=== PATIENT | male | born 1980 | race Two or more races ===

== ENCOUNTER 2025-03-23 23:40 | Emergency (ER) | payer MEDICAID, SELFPAY ==
[2025-03-23 23:46] VITALS: BP 137/80; PULSE 87; RESP 17; TEMP 36.6; O2SAT 96
[2025-03-23 23:48] VITALS: PULSE 100; O2SAT 99
--- NOTE | 2025-03-24 00:33 | XR_ITS ---
Examination: AP chest single view TECHNIQUE: AP portable upright chest single view Date and time: March 24, 2025 at 0057 hours Comparison June 01, 2024 INDICATIONS: Altered mental status shortness of breath today. FINDINGS: Mild opacity left base. Normal heart size Moderate osteopenia IMPRESSION: Mild opacity left base, consider early pneumonia
--- NOTE | 2025-03-24 00:33 | EKG_ITS ---
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
[2025-03-24 00:53] LABS: Lactate (Lactic Acid) 1.5 mMol/L (0.4-2.0)
[2025-03-24 00:56] LABS: Basophils # (Auto) 0.1 Thou/mm3 (0.0-0.2); Basophils % (Auto) 1 % (0-2.5); Eosinophils # (Auto) 0.3 Thou/mm3 (0.0-0.5); Eosinophils % (Auto) 3 % (0-10); Hematocrit 43.1 % (41.0-53.0); Hemoglobin 14.5 g/dL (13.5-16.0); Immature Granulocytes Auto 0.02 Thou/mm3 (0.00-0.00); Lymphocytes # (Auto) 3.0 Thou/mm3 (1.0-4.8); Lymphocytes % (Auto) 33 % (10-50); Mean Corpuscular HGB Conc 33.6 g/dl (31.0-37.0); Mean Corpuscular Hemoglobin 31.6 pg (25.0-35.0); Mean Corpuscular Volume 94 fL (80-100); Monocytes # (Auto) 1.1 Thou/mm3 (0.0-0.8); Monocytes % (Auto) 12 % (0-12); Neutrophils # (Auto) 4.7 Thou/mm3 (1.8-7.7); Neutrophils % (Auto) 51 % (37-80); Nucleated Red Blood Cell # 0.00 Thou/mm3 (0.00-0.00); Nucleated Red Blood Cell % 0 /100 WBC (0); Platelet Count 241 Thou/mm3 (140-440); RDW Standard Deviation 43.8 fL (35.1-43.9); Red Blood Count 4.59 Miln/mm3 (4.50-5.90); White Blood Count 9.3 Thou/mm3 (3.8-10.6)
[2025-03-24 01:22] LABS: Beta Hydroxybutyrate 0.1 mmol/L (<0.6)
--- NOTE | 2025-03-24 01:23 | EDNOTE_ITS ---
ED General RME/HPI General Chief complaint: Altered Mental Status Stated complaint: AMS Time Seen by Provider: 03/24/25 00:31 Arrival date/time: 03/23/25 23:40 RME / HPI RME / HPI narrative: 45-year-old male with past medical history of DM2 and hypertension comes into the ED due to altered mental status. Patient states that tonight he used a little bit too much of his insulin long-acting and that he blacked out and his states that he was not responding and he was diaphoretic and clammy. Patient states that he normally uses around 35 units of insulin long-acting at night, but that today he used 45 units by mistake. He also states that he uses around 18 to 20 units of insulin short acting with meals. He denies having any chest pain, nausea, vomiting, shortness of breath, abdominal pain, diarrhea, burning sensation in urination, or any suicidal or homicidal ideation. Denies any smoking or illicit drugs, admits social drinking Related Data Previous Rx's ?Medication ?Instructions ?Recorded blood-glucose sensor (FreeStyle #1 ea 06/04/24 Guillermina 3 Sensor device) amlodipine 5 mg tablet 5 mg PO QDAY #30 tabs amoxicillin 875 mg-potassium 1 tab PO BID #20 tabs clavulanate 125 mg tablet insulin degludec 100 unit/mL (3 50 unit (0.5 mL) subcu t QDAY #15 mL 06/05/24 mL) subcutaneous pen (Tresiba FlexTouch U-100 insulin) insulin lispro 100 unit/mL 13 unit (0.13 mL) subcut TI DWMEAL 06/05/24 subcutaneous pen #15 mL lisinopril 40 mg tablet 40 mg PO QDAY #30 tabs 06/05 metformin 500 mg tablet,extended 500 mg PO BID #60 tab s 06/05/24 release 24 hr propranolol 20 mg tablet 20 mg PO QDAY #30 tabs 06/05 Allergies Allergy/AdvReac Type Severity Reaction Status Date / Time No Known Allergies Allergy Verified 06/01/24 19:15 Review of Systems Review of Systems Systems Reviewed: All systems reviewed, normal except as documented Past Medical History Past Medical History CARDIAC: Positive Hypertension; Negative Congestive Heart Failure RESPIRATORY: Negative Chronic Obstructive Pulmonary Disease (COPD) GENITOURINARY: Negative Renal Disease ENDOCRINE: Positive Diabetes Mellitus Type 1; Negative Diabetes Mellitus Type 2 Social History SMOKING STATUS: Never smoker SUBSTANCE USE: does not use ALCOHOL: Never ED Exam Narrative Physical exam: Gen: A&O X 3, NAD HEENT: NCAT, EOMI, Pupils reactive KOLE, not icteric. External ears normal. No rhinorrhea. Moist mucous membranes. Neck: Supple, full range of motion, no observable masses, No meningeal sign. Lungs: No Respiratory distress, clear bilateral. CV: RRR, no murmurs. Abdomen: Soft, nondistended, No rebound tenderness. MSK: No joint swelling, no redness, peripheral pulses presents, lumbar with no edema. Skin: No rashes, petechiae, lesions.. Neuro: No focal neurological deficits appreciated, sensory and motor intact. Psych: Cooperative, appropriate mood and effect. Course Quality Measures none Orders Category Date Time Status Bedside Blood Glucose NOW Care 03/24/25 00:33 Active [employer] Q4H START 00 Care 03/24/25 00:33 Active Continuous Pulse Oximetry NOW Care 03/24/25 00:33 Active EKG (ED ONLY) *Do not use* NOW Care 03/24/25 00:33 Completed CXRP [XR chest 1V portable] Stat Exams 03/24/25 00:33 Taken EKG (ED Only) Stat Exams 03/24/25 00:33 Draft Beta Hydroxybutyrate Stat Lab 03/24/25 00:41 Completed CBC [CBC] Stat Lab 03/24/25 00:41 Completed CMP [Comprehensive Metabolic Panel] Stat Lab 03/24/25 00:41 Completed Drug Screen,Urine Stat Lab 03/24/25 00:33 Ordered Lactic Acid [Lactate (Lactic Acid)] Stat Lab 03/24/25 00:41 Completed Magnesium Stat Lab 03/24/25 00:41 Completed Procalcitonin Stat Lab 03/24/25 00:41 Completed Troponin I Stat Lab 03/24/25 00:41 Completed UA [Urinalysis] Stat Lab 03/24/25 00:33 Ordered Vital Signs Vital signs: Vital Signs Temperature 97.8 F 03/23/25 23:46 Pulse Rate 87 03/23/25 23:46 Respiratory Rate 17 03/23/25 23:46 Blood Pressure 137/80 H 03/23/25 23:46 Pulse Oximetry (%) 96 03/23/25 23:46 Oxygen Delivery Method Room Air 03/23/25 23:46 Discharge Plan Plan Patient Disposition: HOME (Self Care) Prescriptions/Referrals Prescriptions/Med Rec: No Action (DME) FreeStyle Guillermina 3 Sensor Device See Rx Instructions .Route Qty: 1 0RF Rx Instructions: As directed amoxicillin-pot clavulanate 875-125 mg tablet 1 tab PO BID Qty: 20 0RF insulin degludec [Tresiba FlexTouch U-100] 100 unit/mL (3 mL) insulin pen 50 unit subcut QDAY Qty: 15 2RF insulin lispro 100 unit/mL insulin pen 13 unit subcut TIDWMEAL Qty: 15 2RF metformin 500 mg tablet extended release 24 hr 500 mg PO BID Qty: 60 2RF lisinopril 40 mg tablet 40 mg PO QDAY Qty: 30 2RF propranolol 20 mg tablet 20 mg PO QDAY Qty: 30 0RF amlodipine 5 mg tablet 5 mg PO QDAY Qty: 30 2RF Problem List Clinical Impression: Accidental overdose of insulin Patient/Caregiver Discharge Instructions Other Activity Instructions:: Follow-up with primary care physician within 5 days Would recommend to continue insulin regimen for now as today's incident was like ly due to incidental increased insulin use. Discussed with primary care physician considering changing insulin regimen if multiple episodes of hypoglycemia recur. Come back to the ED if you develop any altered mental status, diaphoresis, nausea, vomiting, abdominal pain, or any worsening symptoms. Education Materials: ED Diabetic Insulin Reaction Print Language: Malian Stand Alone Forms: Sigrid Award Info., Patient Portal Info Letter MDM Narrative MDM hospital course: Patient was seen and evaluated by myself upon arrival. Diagnostic labs and imaging were ordered. Patient's blood work came back fairly unremarkable, blood glucose was 80 on the CMP. Patient most likely had a incidental overdose of insulin causing his symptoms. Patient at this time is AO x 3 and is following all commands. Nontoxic at this time would like to go home. At this time patient is stable enough to be discharged home. Patient agrees. Case disclosed with Attending Dr. Jasbir Brown PGY2 Disclaimer: Even though this this note was dictated by speech recognition and even though it was carefully revised there may still be minor errors in electronic commerce specialist due to voice recognition software.
[2025-03-24 01:40] LABS: Alanine Aminotransferase 23 U/L (10-49); Albumin, Serum 4.2 gm/dL (3.5-5.0); Albumin/Globulin Ratio 1.6 (1.2-2.2); Alkaline Phosphatase 119 U/L (46-116); Anion Gap 10 (7-16); Aspartate Amino Transferase 36 U/L (0-34); BUN/Creatinine Ratio 8 Ratio (12-20); Bilirubin,Total 0.5 mg/dL (0.3-1.2); Blood Urea Nitrogen 6 mg/dL (9-23); Calcium 8.8 mg/dL (8.3-10.6); Calcium (Corrected) 8.8 mg/dL (8.5-10.1); Carbon Dioxide 24.3 mMol/L (20.0-31.0); Chloride 106 mMol/L (98-107); Creatinine (Component) 0.8 mg/dL (0.6-1.3); Globulin 2.7 gm/dL (2.3-3.5); Glucose 80 mg/dL (74-106); Magnesium 2.0 mg/dL (1.6-2.6); Osmolality,Calculated 276 (275-295); Potassium 3.9 mMol/L (3.4-5.1); Procalcitonin < 0.04 ng/ml (0.0-0.49); Sodium 140 mMol/L (136-145); Total Protein 6.9 gm/dL (5.7-8.2); Troponin I < 0.020 ng/mL (0.0-0.045); eGFR > 60 See Note
--- NOTE | 2025-03-24 02:06 | PC.NURSE ---
pt given a sandwich, milk and juice. pt is awake and alert.
== END 2025-03-24 02:18 | disposition home or self-care (01) ==
LOC: SERX 03-24 02:08
PROVIDERS: PCP Family Medicine
DX: T38.3X1A Poisoning by insulin and oral hypoglycemic [antidiabetic] drugs, accidental (unintentional), initial encounter (principal); R41.82 Altered mental status, unspecified; E11.9 Type 2 diabetes mellitus without complications; I10 Essential (primary) hypertension; Z79.4 Long term (current) use of insulin; Z79.84 Long term (current) use of oral hypoglycemic drugs; Z79.899 Other long term (current) drug therapy
CPT/HCPCS: 36415; 71045; 80053; 80307; 81001; 82010; 83605; 83735; 84145; 84484; 85025; 93005; 99284